=== PATIENT | female | born 1950 | race Caucasian/White ===

== ENCOUNTER → 2016-11-25 | Outpatient (CLI) | payer BC ==
[~2016-11-25] MED LIST: ATOR40TA2; CELE200C PO; CYCL-265 PO; OMEG500C3; [UNRECOGNIZED DRUG - OTHER]
--- NOTE | 2016-11-25 09:12 | Diagnostic Imaging Report ---
INDICATION: Screening. EXAMINATION: Digital screening mammography bilateral with CAD. COMPARISON: 12/23/2006. FINDINGS: There is high breast parenchymal density bilaterally. Numerous macro and microcalcifications are seen within both breasts. Overall, there has been an increase in the microcalcification since the previous study although the findings are bilateral and fairly diffuse. In addition, there has been development of circumscribed nodules in both breasts with the largest on the left measuring up to 1.9 cm in diameter. Subcentimeter nodules are seen within the central right breast. IMPRESSION: Spot compression imaging and ultrasonography of both breasts would be recommended for assessment of increased nodularity. Ultrasonography should be focused in the upper half of the left breast in the central right breast. ACR BI-RADS Category 0: Incomplete. (Needs additional imaging evaluation). Result letter will be mailed to the patient. Note: At least 10% of breast cancer is not imaged by mammography. Dictated by: Dictated on workstation # [id number]
== END ==
LOC: RAD 07:32
PROVIDERS: ATTEND Family Medicine
DX: Z12.31 Encounter for screening mammogram for malignant neoplasm of breast (principal)

== ENCOUNTER → 2016-12-11 | Outpatient (CLI) | payer BC ==
--- NOTE | 2016-12-11 17:44 | Diagnostic Imaging Report ---
EXAM: DIGITAL MAMMO BILAT DIAGNOSTIC The current study was also evaluated with a Computer Aided Detection (CAD) system. INDICATION: Callback from recent mammogram due to findings in both breasts. COMPARISON: Mammograms 12/23/2006, 11/25/2016. DENSITY: Scattered areas of fibroglandular density. FINDINGS: Additional compression views of the right breast demonstrate a persistent small focal asymmetry in the mid inferior right breast, anterior depth. Additional views, including compression, demonstrate two persistent well-circumscribed masses in the left breast. Both of these masses are in the upper left breast. One is medial. One is lateral. Again noted are the numerous diffuse calcifications throughout both breasts, which have progressed since the 2006 exam. IMPRESSION: 1. Persistent focal asymmetry in the right breast. 2. Two persistent masses in the left breast. 3. Numerous diffuse calcifications throughout both breasts, which have progressed since the 2006 exam. RECOMMENDATION: Targeted ultrasound of both breasts. This will be done today before the patient leaves the radiology department. ACR BI-RADS Category 0: Incomplete. (Needs additional imaging evaluation). Result letter will be mailed to the patient. Note: At least 10% of breast cancer is not imaged by mammography. Dictated by: Dictated on workstation # [id number]
--- NOTE | 2016-12-11 17:51 | Diagnostic Imaging Report ---
EXAM: US - breast limited bilateral. The current study was also evaluated with a Computer Aided Detection (CAD) system. INDICATION: Screening. COMPARISON: Mammograms from 12/23/2006, 11/25/2016, 12/11/2016. DENSITY: Scattered areas of fibroglandular density. FINDINGS: Targeted ultrasound of the right breast demonstrates a 3 mm hypoechoic cyst at 5:00, approximately 3 cm from the nipple, with a single septation. Targeted ultrasound of the left breast demonstrates a 1.5 cm hypoechoic simple cyst at 1:00, 5 cm from the nipple. A second large simple appearing cyst in the left breast measures 1.6 cm at 10:00, 2 cm from the nipple. There is a 0.5 cm cyst in the left breast at 5:00, 2 cm from the nipple. A few additional subcentimeter simple cysts in the left breast are documented. IMPRESSION: 1. Small simple cyst with a single septation in the right breast corresponds to the mammographic finding. This is technically indeterminate and should be followed in six months. 2. Simple cysts in the left breast corresponding to the well-circumscribed masses on the prior mammogram. These findings should be benign. RECOMMENDATION: Probably benign cyst in the right breast should be reevaluated in six months. Additionally, because of the numerous benign-appearing, but new, calcifications in both breasts on the recent mammograms, six-month bilateral mammogram is recommended. BI-RADS category 3: Probably benign. Dictated by: Dictated on workstation # [id number]
== END ==
LOC: RAD 12:59
PROVIDERS: ATTEND Family Medicine
DX: N63 Unspecified lump in breast (principal); N60.01 Solitary cyst of right breast
CPT/HCPCS: 76642; G0204